=== PATIENT | male | born 1955 | race Caucasian/White ===

== ENCOUNTER 2020-04-14 11:41 | Emergency (ER) | payer OTHER, MEDICARE ==
[2020-04-14 12:27] LABS: BASOPHIL 0.3 % (0-2); EOSINOPHIL 0.3 % (0-7); HGB 9.7 g/dl (13.2-18.0); LYMPHOCYTE 7.6 % (15-48); MCH 28.2 pg (25.0-31.0); MCHC 31.3 g/dL (32.0-36.0); MCV 90.1 fL (78.0-100.0); MONOCYTE 13.3 % (0-12); MPV 9.3 fL (6.0-9.5); NEUTROPHIL 77.7 % (41-80); NRBC 0; PLT 178 K/uL (150-400); RBC 3.44 M/uL (4.70-6.00); RDW 16.3 % (11.5-14.0); WBC 7.2 K/uL (4.0-10.5)
[2020-04-14 12:40] LABS: ALBUMIN 2.7 g/dL (3.4-5.0); BILIRUBIN - TOTAL 0.3 mg/dL (0.2-1.0); BUN/CREAT RATIO (CALC) 14.1 RATIO; CREATININE 0.64 mg/dL (0.67-1.17); POTASSIUM 3.8 mmol/L (3.5-5.1); TOTAL PROTEIN 6.7 g/dL (6.4-8.2)
[2020-04-14] MEDS ORDERED: DECADRON4 MG PO (18:26)
[2020-04-14] MEDS ORDERED: LEVETIRACETAM500 MG PO (18:26)
[2020-04-14] MEDS ORDERED: ATIVAN0.5 MG PO (18:26)
== END 2020-04-14 18:50 | disposition home or self-care (01) ==
LOC: FER 11:41
PROVIDERS: Emergency Medicine
DX: C79.31 Secondary malignant neoplasm of brain (principal); C34.90 Malignant neoplasm of unspecified part of unspecified bronchus or lung; R79.89 Other specified abnormal findings of blood chemistry; I10 Essential (primary) hypertension; J44.9 Chronic obstructive pulmonary disease, unspecified; Z88.0 Allergy status to penicillin; Z79.899 Other long term (current) drug therapy; Z20.822 Contact with and (suspected) exposure to COVID-19
CPT/HCPCS: 36415; 36600; 70450; 70553; 71045; 80053; 82140; 82803; 83605; 83880; 84145; 84484; 85025; 87040; 93005; A9579; J1100; J1642; J1953; J2060; U0002